=== PATIENT | female | born 1990 | race Two or more races ===

== ENCOUNTER 2025-01-14 10:34 | Emergency (ER) | payer OTHER ==
[~2025-01-14] VITALS: Ht 157.5 cm; Wt 70.3 kg
[2025-01-14] MEDS ORDERED: ACETAMINOPHEN 500 MG GEL..CAP PO ONE ×2 (12:00→12:25)
[2025-01-14] MEDS ORDERED: DIPHENHYDRAMINE HCL 50 MG/ML VIAL 1ML IM ONE (12:00)
[2025-01-14] MEDS ORDERED: DIPHENHYDRAMINE HCL 50 MG/ML VIAL 1ML ONE (12:24)
[2025-01-14 12:51] LABS: BASO % 0.3 % (0.1-1.2); EOS # 0.03 (0.04-0.54); EOS % 0.4 % (0.7-7.0); LYMPH # 0.62 (1.18-3.74); LYMPH % 9.1 % (19.3-53.1); MEAN PLATELET VOLUME 9.80 fl (9.4-12.4); MONO # 0.57 (0.24-0.82); MONO % 8.3 % (4.7-12.5); NEUT # 5.49 (1.56-6.13); NEUT % 80.3 % (34.0-71.1); RED CELL DISTRIBUTION WIDTH 14.0 % (11.6-14.4)
[2025-01-14 13:22] LABS: COVID-19 AG NEGATIVE (NEGATIVE)
== END 2025-01-14 15:03 | disposition home or self-care (01) ==
LOC: ER 10:34
PROVIDERS: General Practice
DX: O99.512 Diseases of the respiratory system complicating pregnancy, second trimester (principal); J06.9 Acute upper respiratory infection, unspecified; Z3A.24 24 weeks gestation of pregnancy; Z20.822 Contact with and (suspected) exposure to COVID-19

== ENCOUNTER 2025-02-03 10:40 | Outpatient (CLI) | payer OTHER | END 2025-02-03 10:41 | disposition home or self-care (01) | LOC: PRENATAL 10:40 | PROVIDERS: ATTEND Obstetrics & Gynecology Maternal & Fetal Medicine | DX: O26.843 Uterine size-date discrepancy, third trimester (principal); Z3A.28 28 weeks gestation of pregnancy ==